=== PATIENT | female | born 1990 | race Caucasian/White ===

== ENCOUNTER 2018-12-19 16:54 | Emergency (ER) | payer BC ==
[2018-12-19] MEDS ORDERED: ONDANSETRON HCL INJ/PF 4 MG/2 ML SDV IV ONE (18:14)
[2018-12-19] MEDS ORDERED: KETOROLAC TROMETHAMINE INJ/PF 30 MG/1 ML SDV IV ONE (18:15)
[2018-12-19] MEDS ORDERED: NORMAL SALINE 1000 ML 1,000 ML IV ONE (18:15)
--- NOTE | 2018-12-19 18:16 | ER Document Report ---
ED Medical Screen (RME) - General Chief Complaint: Abdominal Pain Stated Complaint: ABDOMINAL PAIN Time Seen by Provider: 12/19/18 18:11 TRAVEL OUTSIDE OF THE [place] IN LAST 30 DAYS: No - HPI Notes: 12/19/18 18:15 Patient is a 28-year-old female no significant past medical history aside from having a previous kidney stone who presents complaining of right sided abdominal pain underneath her ribs that will occasionally radiate towards the front of her abdomen. Pain is been described as intermittent, but was constant initially a week ago when it started. Patient states that she did have some nausea and vomiting today. She is otherwise urinating normally and having normal bowel movement. She just ended her menstrual cycle. No other vaginal odor or discharge. Denies drug allergies. Patient was evaluated in urgent care and her urinalysis was unremarkable at that time. Denies ROBBINS, fever, neck pain, URI, CP, SOB, or rash. I have treated and performed a rapid initial assessment of this patient. A comprehensive ED assessment and evaluation of the patient, analysis of test results and completion of medical decision making process will be conducted by additional ED providers. PHYSICAL EXAMINATION: GENERAL: Well-appearing, well-nourished and in no acute distress. A&Ox4. Answers questions appropriately. LUNGS: Breath sounds clear to auscultation bilaterally and equal. No wheezes rales or rhonchi. HEART: Regular rate and rhythm without murmurs, rubs, gallops. ABDOMEN: Soft, nondistended abdomen. No guarding, no rebound. Normal bowel sounds present. No CVA tenderness bilaterally. grossly nontender (cannot elicit thorough abd exam w/o table, however). Extremities: No cyanosis, clubbing, or edema b/l. NEUROLOGICAL: Normal speech, normal gait. PSYCH: Normal mood, normal affect. - Related Data Allergies/Adverse Reactions: No Known Allergies Allergy (Verified 12/19/18 16:57) Past Medical History - Social History Chew tobacco use (# tins/day): No Frequency of alcohol use: None Drug Abuse: None Renal/ Medical History: Denies: Hx Peritoneal Dialysis Physical Exam - Vital signs Vitals: Temp Pulse Resp BP Pulse Ox 98.2 F 119 H 18 148/76 H 100 12/19/18 16:57 12/19/18 16:57 12/19/18 16:57 12/19/18 16:57 12/19/18 16:57 Course - Vital Signs Vital signs: Temp Pulse Resp BP Pulse Ox 98.2 F 119 H 18 148/76 H 100 12/19/18 16:57 12/19/18 16:57 12/19/18 16:57 12/19/18 16:57 12/19/18 16:57
[2018-12-19 18:56] LABS: ABSOLUTE EOSINOPHILS # (AUTO) 0.3 10^3/uL (0.0-0.6); ABSOLUTE LYMPHOCYTES (AUTO) 2.5 10^3/uL (0.5-4.7); ABSOLUTE MONOCYTES (AUTO) 0.9 10^3/uL (0.1-1.4); ABSOLUTE NEUT (AUTO) 8.8 10^3/uL (1.7-8.2); BASOPHILS % (AUTO) 0.2 % (0-2); EOSINOPHILS % (AUTO) 2.1 % (0-6); HEMATOCRIT 41.1 % (36.0-47.0); HEMOGLOBIN 13.8 g/dL (12.0-15.5); LYMPHOCYTES % (AUTO) 19.9 % (13-45); MEAN CORPUSCULAR HEMOGLOBIN 31.1 pg (27.0-33.4); MEAN CORPUSCULAR HGB CONC 33.5 g/dL (32.0-36.0); MEAN CORPUSCULAR VOLUME 93 fl (80-97); MONOCYTES % (AUTO) 7.1 % (3-13); PLATELET COUNT 308 10^3/uL (150-450); RED BLOOD COUNT 4.43 10^6/uL (3.72-5.28); SEGMENTED NEUTROPHILS % (AUTO) 70.7 % (42-78); TOTAL CELLS COUNTED % (AUTO) 100 %; WHITE BLOOD COUNT 12.4 10^3/uL (4.0-10.5)
[2018-12-19 19:09] LABS: APPEARANCE,URINE CLOUDY; BILIRUBIN,URINE NEGATIVE (NEGATIVE); COLOR,URINE AMBER; GLUCOSE, URINE NEGATIVE (NEGATIVE); KETONES,URINE NEGATIVE (NEGATIVE); LEUKOCYTE ESTERASE,URINE NEGATIVE (NEGATIVE); NITRITE,URINE NEGATIVE (NEGATIVE); PROTEIN,URINE NEGATIVE (NEGATIVE); URINE SPECIFIC GRAVITY 1.029; UROBILINOGEN,URINE NEGATIVE mg/dL (<2.0)
[2018-12-19 19:14] LABS: ALANINE AMINOTRANSFERASE 20 U/L (9-52); ALBUMIN 4.7 g/dL (3.5-5.0); ALKALINE PHOSPHATASE 82 U/L (38-126); ANION GAP 14 (5-19); ASPARTATE AMINO TRANSFERASE 17 U/L (14-36); BILIRUBIN,DIRECT 0.2 mg/dL (0.0-0.4); BILIRUBIN,TOTAL 0.3 mg/dL (0.2-1.3); BLOOD UREA NITROGEN 15 mg/dL (7-20); CARBON DIOXIDE 25 mmol/L (22-30); CHLORIDE 102 mmol/L (98-107); GLUCOSE 97 mg/dL (75-110); LIPASE 91.8 U/L (23-300); POTASSIUM 4.3 mmol/L (3.6-5.0); SODIUM 141.4 mmol/L (137-145); TOTAL PROTEIN 7.7 g/dL (6.3-8.2)
--- NOTE | 2018-12-19 20:29 | ER Document Report ---
ED GI/ - General Chief Complaint: Abdominal Pain Stated Complaint: ABDOMINAL PAIN Time Seen by Provider: 12/19/18 18:11 Mode of Arrival: Ambulatory Information source: Patient TRAVEL OUTSIDE OF THE [place] IN LAST 30 DAYS: No - HPI Patient complains to provider of: Abdominal pain, Flank pain Notes: 12/19/18 20:28 Patient here with complaints of right-sided abdominal/side pain for the last several days. She said nausea and vomited a few times intermittently but denies any vomiting now. No diarrhea. No dysuria or hematuria. No back till discharge. Pain is constant, nothing makes it better nothing makes it worse. She does have a history of kidney stones and this feels somewhat similar to that. No chest pain or shortness of breath. No fever. No rash. No injury. No numbness, tingling, weakness. No headache or blurred vision. No other specific complaints at this time. - Related Data Allergies/Adverse Reactions: No Known Allergies Allergy (Verified 12/19/18 20:05) Past Medical History - Social History Smoking Status: Unknown if Ever Smoked Chew tobacco use (# tins/day): No Frequency of alcohol use: None Drug Abuse: None Family History: Reviewed & Not Pertinent Patient has suicidal ideation: No Patient has homicidal ideation: No Renal/ Medical History: Denies: Hx Peritoneal Dialysis Review of Systems - Review of Systems -: Yes All other systems reviewed and negative Physical Exam - Vital signs Vitals: Temp Pulse Resp BP Pulse Ox 98.2 F 119 H 18 148/76 H 100 12/19/18 16:57 12/19/18 16:57 12/19/18 16:57 12/19/18 16:57 12/19/18 16:57 - Notes Notes: GENERAL: alert, cooperative, nontoxic, no distress. HEAD: normocephalic, atraumatic EYES: conjunctiva pink without discharge, no external redness or swelling. EARS: no external swelling, no external redness NOSE: atraumatic, no external swelling MOUTH/THROAT: mucous membranes moist and pink, posterior pharynx without erythema, swelling, exudate. No trismus or drooling. NECK: soft, supple, full range of motion, no meningismus. CHEST: no distress, lungs clear and equal throughout. No wheezing, rales, rhonchi. CARDIAC: regular rate and rhythm, no murmur, normal capillary refill, normal pulses. No peripheral edema noted. ABDOMEN: Soft, tenderness to palpation to the right mid abdomen and right lateral abdomen. No obvious mass, obese abdomen. BACK: full range of motion, no CVA tenderness. EXTREMITIES: full range of motion of all extremities. No redness, no swelling. NEURO: alert and oriented x 3, no focal deficits, full range of motion of all extremities. PYSCH: appropriate mood, affect. Patient is cooperative. SKIN: pink, warm, dry, no rash. Course - Re-evaluation Re-evalutation: 12/19/18 21:42 Patient is nontoxic-appearing with stable vitals. Patient here with complaints of right-sided abdominal pain. She has had some nausea with it as well. She is some tenderness to the right mid abdomen. Lab works unremarkable with a normal white count. LFTs, lipase are normal. Kidney functions normal. Urinalysis shows no signs of infection. Urine is negative. CT abdomen pelvis is negative for acute findings. Patient is feeling better at this time. Cannot exactly explain the patient's source of pain. She has no pelvic pain. She has no pelvic symptoms. This point believe the patient can be discharged home with prescription for some Naprosyn and Zofran with instructions to follow-up with her primary care doctor in the next 2 days if not better. She was instructed to return the emergency department if her pain got worse, high fever, persistent vomiting, or if she had any further concerns. The patient's emergency department workup and current diagnosis were explained to the patient and or family. Follow-up instructions were provided. Medications if prescribed were discussed. Instructions for when to return to the emergency department including specific worrisome symptoms were discussed with the patient and/or family. - Vital Signs Vital signs: Temp Pulse Resp BP Pulse Ox 98.2 F 119 H 18 148/76 H 100 12/19/18 16:57 12/19/18 16:57 12/19/18 16:57 12/19/18 16:57 12/19/18 16:57 - Laboratory Result Diagrams: 12/19/18 18:47 12/19/18 18:47 Laboratory results interpreted by me: 12/19/18 12/19/18 18:47 18:47 WBC 12.4 H Absolute Neutrophils 8.8 H Urine Ascorbic Acid 40 H - Diagnostic Test Radiology reviewed: Image reviewed, Reports reviewed - CT abdomen pelvis negative. Discharge - Discharge Clinical Impression: Abdominal pain Qualifiers: Abdominal location: unspecified location Qualified Code(s): R10.9 - Unspecified abdominal pain Condition: Stable Disposition: HOME, SELF-CARE Instructions: Abdominal Pain ([facility]) Additional Instructions: Take medication as prescribed. Drink plenty fluids. Follow-up with your doctor if not better in the next 2 days, sooner if worsening pain, fever, persistent vomiting, or for any further concerns. Prescriptions: Naproxen [Naprosyn] 500 mg PO BID #20 tablet Ondansetron HCl [Zofran 4 mg Tablet] 1 tab PO Q6H PRN #10 tablet PRN Reason: Forms: Elevated Blood Pressure, Smoking Cessation Education Referrals: [facility] [Provider Group] - Follow up as needed
--- NOTE | 2018-12-19 21:12 | RADIOLOGY REPORT (SQ) ---
EXAM DESCRIPTION: CT ABDOMEN PELVIS WITHOUT IV CONTRAST COMPLETED DATE/TME: 12/19/2018 20:27 CLINICAL HISTORY: 28 years, Female, RIGHT FLANK PAIN COMPARISON: None. TECHNIQUE: Axial images of the abdomen and pelvis were performed without the use of intravenous contrast, with sagittal and coronal reformatted images. Images stored on PACS. All CT scanners at this facility use dose modulation, iterative reconstruction, and/or weight based dosing when appropriate to reduce radiation dose to as low as reasonably achievable (ALARA). [facility]: Dose Right [facility]: CareDose [facility]: Dose Right [facility]: Teradose 4D [facility]: MedWhat LIMITATIONS: None. FINDINGS: No hydronephrosis or urinary stone. There are calcified phleboliths in the pelvis. The appendix appears normal. No evidence of bowel obstruction. There is no significant radiographic abnormality of the liver, spleen, pancreas or adrenal glands. No mass or adenopathy. No free air or free fluid. IMPRESSION: No acute finding. TECHNICAL DOCUMENTATION: Quality ID # [id number]: Final reports with documentation of one or more dose reduction techniques (e.g., Automated exposure control, adjustment of the mA and/or kV according to patient size, use of iterative reconstruction technique) copyright 2010 [employer]- All Rights Reserved
[2018-12-19 22:27] VITALS: BP 122/73
== END 2018-12-19 22:26 | disposition home or self-care (01) ==
LOC: ER 16:54
DX: R10.9 Unspecified abdominal pain (principal); R11.2 Nausea with vomiting, unspecified; Z87.442 Personal history of urinary calculi
CPT/HCPCS: 99284; 96361; 96374; 96375; 36415; 83690; 85025; 81025; 80053; 81001; 74176; J1885; J2405; J7030

== ENCOUNTER 2019-05-29 16:35 | Emergency (ER) | payer BC ==
[2019-05-29] MEDS ORDERED: ASPIRIN 81 MG TABLET, CHEWABLE PO ONE (16:46)
--- NOTE | 2019-05-29 16:50 | ER Document Report ---
ED Medical Screen (RME) - General Chief Complaint: Chest Pain Stated Complaint: CHEST DISCOMFORT Time Seen by Provider: 05/29/19 16:46 Mode of Arrival: Ambulatory Information source: Patient Notes: 29-year-old female presents to ED for complaint of chest discomfort number 1 PM today while she was at work. She states she also had shakiness and dizziness. She is alert oriented respirations regular and on unlabored speaking in full sentences walks with even steady gait. She states she does not smoke drinks socially does not use any drugs. She is a manager production. She states her control pills were ending so she should be starting her period soon. She denies any cardiac history or any blood pressure or cholesterol. I have greeted and performed a rapid initial assessment of this patient. A comprehensive ED assessment and evaluation of the patient, analysis of test results and completion of medical decision making process will be conducted by an additional ED providers. TRAVEL OUTSIDE OF THE [place] IN LAST 30 DAYS: No - Related Data Allergies/Adverse Reactions: No Known Allergies Allergy (Verified 05/29/19 16:46) Past Medical History - Social History Chew tobacco use (# tins/day): No Frequency of alcohol use: Social Drug Abuse: None Renal/ Medical History: Denies: Hx Peritoneal Dialysis Physical Exam - Vital signs Vitals: Temp Pulse Resp BP Pulse Ox 97.2 F 104 H 16 135/73 H 100 05/29/19 16:45 05/29/19 16:45 05/29/19 16:45 05/29/19 16:45 05/29/19 16:45 Course - Vital Signs Vital signs: Temp Pulse Resp BP Pulse Ox 97.2 F 104 H 16 135/73 H 100 05/29/19 16:45 05/29/19 16:45 05/29/19 16:45 05/29/19 16:45 05/29/19 16:45
[2019-05-29] MEDS ORDERED: CALCIUM GLUCONATE 1000 MG/10 ML INJ IV ONE (17:21)
--- NOTE | 2019-05-29 17:25 | RADIOLOGY REPORT (SQ) ---
EXAM DESCRIPTION: CHEST 2 VIEWS COMPLETED DATE/TIME: 05/29/2019 5:06 pm REASON FOR STUDY: chest discomfort COMPARISON: None. EXAM PARAMETERS: NUMBER OF VIEWS: two views TECHNIQUE: Digital Frontal and Lateral radiographic views of the chest acquired. RADIATION DOSE: NA LIMITATIONS: none FINDINGS: LUNGS AND PLEURA: No opacities, masses or pneumothorax. No pleural effusion. MEDIASTINUM AND HILAR STRUCTURES: No masses or contour abnormalities. HEART AND VASCULAR STRUCTURES: Heart normal size. No evidence for failure. BONES: No acute findings. HARDWARE: None in the chest. OTHER: No other significant finding. IMPRESSION: NO ACUTE RADIOGRAPHIC FINDING IN THE CHEST. TECHNICAL DOCUMENTATION: JOB ID: [id number] [employer]- All Rights Reserved Reading location - IP/workstation name: [email or web address]
[2019-05-29 17:35] LABS: ABSOLUTE EOSINOPHILS # (AUTO) 0.2 10^3/uL (0.0-0.6); ABSOLUTE LYMPHOCYTES (AUTO) 2.8 10^3/uL (0.5-4.7); ABSOLUTE MONOCYTES (AUTO) 0.7 10^3/uL (0.1-1.4); ABSOLUTE NEUT (AUTO) 7.1 10^3/uL (1.7-8.2); BASOPHILS % (AUTO) 0.1 % (0-2); EOSINOPHILS % (AUTO) 1.8 % (0-6); HEMATOCRIT 38.9 % (36.0-47.0); HEMOGLOBIN 13.4 g/dL (12.0-15.5); LYMPHOCYTES % (AUTO) 25.5 % (13-45); MEAN CORPUSCULAR HEMOGLOBIN 31.9 pg (27.0-33.4); MEAN CORPUSCULAR HGB CONC 34.5 g/dL (32.0-36.0); MEAN CORPUSCULAR VOLUME 92 fl (80-97); MONOCYTES % (AUTO) 6.6 % (3-13); PLATELET COUNT 301 10^3/uL (150-450); RED BLOOD COUNT 4.22 10^6/uL (3.72-5.28); RED CELL DISTRIBUTION WIDTH 12.5 % (11.5-14.0); TOTAL CELLS COUNTED % (AUTO) 100 %; WHITE BLOOD COUNT 10.8 10^3/uL (4.0-10.5)
[2019-05-29] MEDS ORDERED: NORMAL SALINE 1000 ML 1,000 ML IV ONE (17:35)
--- NOTE | 2019-05-29 17:38 | ER Document Report ---
ED Cardiac - General Chief Complaint: Chest Pain Stated Complaint: CHEST DISCOMFORT Time Seen by Provider: 05/29/19 16:46 Primary Care Provider: MAYELA HOLDER MD [Primary Care Provider] - Follow up as needed Mode of Arrival: Ambulatory Notes: HPI: Patient is a 29-year-old female that presents today stating around 5 weeks of some intermittent left-sided nonradiating chest pain. She also says a mild frontal headache without blurry vision, weakness or numbness. She denies cough, shortness of breath, calf pain or leg swelling. No recent trips or travel. Patient does not believe she is . Patient does state that she did drink an energy drink today. Patient states she has a history of some intermittent headaches with a recent MRI and a neurology evaluation. She states this is the same location as her normal headaches. Headache is currently 1 out of 10. It came on slowly. No neck pain or stiffness. ROS: See HPI All other review of systems reviewed and otherwise negative Reviewed vital signs and nursing note as charted by RN. PHYSICAL EXAM: CONSTITUTIONAL: Alert and oriented and responds appropriately to questions. Well-appearing; well-nourished HEAD: Normocephalic; atraumatic EYES: PERRL; full extraocular range of motion; no nystagmus ENT: Normal nose; no rhinorrhea; moist mucous membranes; pharynx without lesions noted NECK: Supple without meningismus; non-tender; no cervical lymphadenopathy, no masses CARD: Tachycardic and regular; no murmurs; symmetric distal pulses RESP: Normal chest excursion without splinting or tachypnea; breath sounds clear and equal bilaterally; no wheezes, no rhonchi, no rales ABD/GI: Normal bowel sounds; non-distended; soft, non-tender; no palpable organomegaly or masses BACK: The back appears normal and is non-tender to palpation EXT: Normal ROM in all joints; non-tender to palpation; no edema SKIN: No acute lesions noted NEURO: CN 2-12 intact; 5/5 bilateral upper and lower extremity strength with sensation intact to light touch PSYCH: The patient's mood and manner are appropriate. Grooming and personal hygiene are appropriate. TRAVEL OUTSIDE OF THE [place] IN LAST 30 DAYS: No - Related Data Allergies/Adverse Reactions: No Known Allergies Allergy (Verified 05/29/19 16:46) Past Medical History - General Information source: Patient - Social History Smoking Status: Never Smoker Chew tobacco use (# tins/day): No Frequency of alcohol use: Social Drug Abuse: None Family History: Reviewed & Not Pertinent Patient has suicidal ideation: No Patient has homicidal ideation: No Renal/ Medical History: Denies: Hx Peritoneal Dialysis Physical Exam - Vital signs Vitals: Temp Pulse Resp BP Pulse Ox 97.2 F 104 H 16 135/73 H 100 05/29/19 16:45 05/29/19 16:45 05/29/19 16:45 05/29/19 16:45 05/29/19 16:45 Course - Re-evaluation Re-evalutation: Given the history and physical examination, with a heart rate of 110, with no family history of early cardiac disease, non-smoker, denying any drug abuse, with a history and physical acts recorded, I do have a low pretest probability for ACS or dissection. I do believe the pretest probability for pulmonary embolism is low but the patient's heart rate is 107. Patient did drink an energy drink today. I will order a d-dimer. I have provided fluids and aspirin. Regarding the patient's headache, with a history of headaches, with a recent MRI, slow onset, frontal in location, no blurry vision, weakness or numbness, I do believe acute angle-closure glaucoma, acute bacterial meningitis, and subarachnoid hemorrhage to be extremely unlikely. 05/29/19 17:37 EKG shows heart of 110, sinus tachycardia, normal axis, no ST elevation or depression, inverted T waves in lead III 05/29/19 18:06 Labs and d-dimer as recorded. Heart rate is currently 96. 05/29/19 18:07 X-ray of the chest is unremarkable. 05/29/19 19:10 Labs and imaging as recorded. Normal d-dimer and TSH. No change in exam. Heart rate is currently 97. Patient has been instructed to avoid any caffeinated products or energy drinks with strict return precautions. Patient still denies any neck pain and the headache has improved. She is currently headache free. Still no weakness or numbness. - Vital Signs Vital signs: Temp Pulse Resp BP Pulse Ox 97.2 F 104 H 18 115/60 100 05/29/19 16:45 05/29/19 16:45 05/29/19 18:00 05/29/19 18:01 05/29/19 18:01 - Laboratory Result Diagrams: 05/29/19 17:18 05/29/19 17:18 Laboratory results interpreted by me: 05/29/19 17:18 WBC 10.8 H Discharge - Discharge Clinical Impression: Atypical chest pain, Tachycardia Condition: Good Disposition: HOME, SELF-CARE Additional Instructions: Come back immediately with any worsening pain, change in location or quality of pain, fevers or shortness of breath, leg swelling, weakness or numbness, or any other acute problems. Please make sure that you follow-up with the primary doctor as discussed. Referrals: MAYELA HOLDER MD [Primary Care Provider] - Follow up as needed
[2019-05-29 17:42] LABS: INTERNATIONAL RATION (INR) 1.05; PROTHROMBIN TIME 13.7 SEC (11.4-15.4)
[2019-05-29 17:43] LABS: PARTIAL THROMBOPLASTIN TIME 26.9 SEC (23.5-35.8)
[2019-05-29 17:57] LABS: ALBUMIN 4.6 g/dL (3.5-5.0); ALKALINE PHOSPHATASE 82 U/L (38-126); ANION GAP 10 (5-19); ASPARTATE AMINO TRANSFERASE 24 U/L (14-36); BILIRUBIN,DIRECT 0.1 mg/dL (0.0-0.4); BILIRUBIN,TOTAL 0.5 mg/dL (0.2-1.3); BLOOD UREA NITROGEN 15 mg/dL (7-20); CALCIUM 9.6 mg/dL (8.4-10.2); CARBON DIOXIDE 27 mmol/L (22-30); CHLORIDE 102 mmol/L (98-107); CREATINE KINASE 110 U/L (30-135); GLUCOSE 92 mg/dL (75-110); POTASSIUM 3.8 mmol/L (3.6-5.0); TOTAL PROTEIN 7.7 g/dL (6.3-8.2)
[2019-05-29 18:09] LABS: CREATINE KINASE MB 1.26 ng/mL (<4.55); NT PRO BNP 59 pg/mL (<125)
[2019-05-29 18:10] LABS: TROPONIN I < 0.012 ng/mL
[2019-05-29 19:28] VITALS: BP 119/66
--- NOTE | 2019-05-29 21:38 | EKG REPORT ---
SEVERITY:- OTHERWISE NORMAL ECG - SINUS TACHYCARDIA : Confirmed by: Eduardo Banerjee MD 29-May-2019 21:37:15
== END 2019-05-29 19:35 | disposition home or self-care (01) ==
LOC: ER 16:35
DX: R07.89 Other chest pain (principal); R00.0 Tachycardia, unspecified; R51 Headache
CPT/HCPCS: 93005; 36415; 82553; 82550; 83735; 84443; 84703; 85025; 85610; 85730; 80053; 84484; 85379; 83880; 71046; 93010; J7030; 96360; 99285

== ENCOUNTER 2020-02-23 11:23 | Outpatient (CLI) | payer BC ==
[2020-02-23 12:37] LABS: APPEARANCE,URINE CLEAR; BILIRUBIN,URINE NEGATIVE (NEGATIVE); COLOR,URINE COLORLESS; GLUCOSE, URINE NEGATIVE (NEGATIVE); KETONES,URINE NEGATIVE (NEGATIVE); LEUKOCYTE ESTERASE,URINE NEGATIVE (NEGATIVE); NITRITE,URINE NEGATIVE (NEGATIVE); PROTEIN,URINE NEGATIVE (NEGATIVE); URINE SPECIFIC GRAVITY 1.002; UROBILINOGEN,URINE NEGATIVE mg/dL (<2.0)
[2020-02-23 12:56] LABS: URINE AMPHETAMINES SCREEN NEGATIVE; URINE BARBITURATES SCREEN NEGATIVE; URINE BENZODIAZEPINES SCREEN NEGATIVE; URINE COCAINE SCREEN NEGATIVE; URINE MARIJUANA (THC) SCREEN NEGATIVE; URINE METHADONE SCREEN NEGATIVE; URINE PHENCYCLIDINE SCREEN NEGATIVE
== END 2020-02-23 12:18 | disposition home or self-care (01) ==
LOC: LC 11:23
PROVIDERS: ATTEND Student in an Organized Health Care Education/Training Program
DX: O36.8130 Decreased fetal movements, third trimester, not applicable or unspecified (principal); Z3A.31 31 weeks gestation of pregnancy
CPT/HCPCS: 80307; 81001

== ENCOUNTER 2020-04-25 07:15 | Inpatient (IN) | payer BC ==
[2020-04-25 08:25] LABS: APPEARANCE,URINE CLOUDY; BILIRUBIN,URINE NEGATIVE (NEGATIVE); COLOR,URINE YELLOW; GLUCOSE, URINE NEGATIVE (NEGATIVE); KETONES,URINE NEGATIVE (NEGATIVE); LEUKOCYTE ESTERASE,URINE NEGATIVE (NEGATIVE); NITRITE,URINE NEGATIVE (NEGATIVE); PROTEIN,URINE 100 mg/dL (NEGATIVE); URINE SPECIFIC GRAVITY 1.023; UROBILINOGEN,URINE NEGATIVE mg/dL (<2.0)
[2020-04-25 08:42] LABS: URINE AMPHETAMINES SCREEN NEGATIVE; URINE BARBITURATES SCREEN NEGATIVE; URINE BENZODIAZEPINES SCREEN NEGATIVE; URINE COCAINE SCREEN NEGATIVE; URINE MARIJUANA (THC) SCREEN NEGATIVE; URINE METHADONE SCREEN NEGATIVE; URINE PHENCYCLIDINE SCREEN NEGATIVE
[2020-04-25] MEDS ORDERED: RINGERS SOLUTION,LACTATED 1,000 ML IV ONE ×2 (08:45→09:45)
[2020-04-25 09:10] LABS: ABSOLUTE EOSINOPHILS # (AUTO) 0.1 10^3/uL (0.0-0.6); ABSOLUTE LYMPHOCYTES (AUTO) 1.4 10^3/uL (0.5-4.7); ABSOLUTE MONOCYTES (AUTO) 0.9 10^3/uL (0.1-1.4); ABSOLUTE NEUT (AUTO) 8.1 10^3/uL (1.7-8.2); BASOPHILS % (AUTO) 0.2 % (0-2); EOSINOPHILS % (AUTO) 0.9 % (0-6); HEMATOCRIT 32.4 % (36.0-47.0); HEMOGLOBIN 11.1 g/dL (12.0-15.5); MEAN CORPUSCULAR HEMOGLOBIN 31.6 pg (27.0-33.4); MEAN CORPUSCULAR HGB CONC 34.3 g/dL (32.0-36.0); MEAN CORPUSCULAR VOLUME 92 fl (80-97); MONOCYTES % (AUTO) 8.2 % (3-13); PLATELET COUNT 177 10^3/uL (150-450); RED BLOOD COUNT 3.52 10^6/uL (3.72-5.28); RED CELL DISTRIBUTION WIDTH 14.7 % (11.5-14.0); SEGMENTED NEUTROPHILS % (AUTO) 77.7 % (42-78); TOTAL CELLS COUNTED % (AUTO) 100 %; WHITE BLOOD COUNT 10.4 10^3/uL (4.0-10.5)
[2020-04-25] MEDS ORDERED: CEFAZOLIN 1 GM/D5W RTU 1 GM/50 ML RTUPB IV PRN (09:31)
[2020-04-25] MEDS ORDERED: OXYTOCIN 10 UNIT/ML VIAL ONE (09:43)
[2020-04-25] MEDS ORDERED: KETOROLAC TROMETHAMINE INJ/PF 30 MG/1 ML SDV ONE (09:43)
[2020-04-25] MEDS ORDERED: FENTANYL CITRATE INJ/PF 100 MCG/2 ML AMPUL ONE ×2 (09:43→12:42)
[2020-04-25] MEDS ORDERED: MIDAZOLAM 2 MG/2 ML INJ ONE (09:43)
[2020-04-25] MEDS ORDERED: ACETAMINOPHEN 1,000 MG/100 ML RTUPB IV ONE (09:44)
[2020-04-25] MEDS ORDERED: ONDANSETRON HCL INJ/PF 4 MG/2 ML SDV ONE (09:44)
[2020-04-25] MEDS ORDERED: MORPHINE SULFATE 10 MG/ML INJ IV PRN (11:24)
[2020-04-25] MEDS ORDERED: MEPERIDINE HCL/PF INJ 25 MG/1 ML DISP.SYRIN IV PRN (11:24)
[2020-04-25] MEDS ORDERED: FENTANYL CITRATE INJ/PF 100 MCG/2 ML AMPUL IV PRN ×3 (11:24)
[2020-04-25] MEDS ORDERED: ONDANSETRON HCL INJ/PF 4 MG/2 ML SDV IV PRN (11:24)
[2020-04-25] MEDS ORDERED: PROMETHAZINE HCL INJ 25 MG/1 ML VIAL IV PRN ×3 (11:24→12:04)
[2020-04-25] MEDS ORDERED: DIPHENHYDRAMINE HCL 50 MG/ML VIAL IV PRN (11:24)
[2020-04-25] MEDS ORDERED: OXYCODONE-ACETAMINOPHEN 5-325 MG TABLET PO PRN ×3 (11:24→12:04)
[2020-04-25] MEDS ORDERED: MEASLES,MUMPS&RUBELLA VACC/PF 0.5 ML VIAL SUBCUT PRN (12:04)
[2020-04-25] MEDS ORDERED: SIMETHICONE 80 MG TAB.CHEW PO PRN (12:04)
[2020-04-25] MEDS ORDERED: DIPH/PERTUSS(ACELL)/TETANUS VAC/PF 0.5 ML SYR (>=10YO) IM PRN (12:04)
[2020-04-25] MEDS ORDERED: OXYTOCIN/0.9 % SODIUM CHLORIDE 30 UNIT/500 ML RTUINJ IV PRN (12:04)
[2020-04-25] MEDS ORDERED: HYDROMORPHONE HCL INJ/PF 2 MG/ML AMPULE IV PRN (12:04)
[2020-04-25] MEDS ORDERED: RINGERS SOLUTION,LACTATED 1,000 ML IV PRN (12:04)
[2020-04-25] MEDS ORDERED: ACETAMINOPHEN 325 MG TABLET PO PRN (12:04)
--- NOTE | 2020-04-25 12:16 | Operative Report ---
Operative Report DATE OF SURGERY: 04/25/20 PREOPERATIVE DIAGNOSIS: Intrauterine at 39.4 wks EGA. Large for gest ational age POSTOPERATIVE DIAGNOSIS: Same as above OPERATION: Primary section SURGEON: CHIQUI ESCOBAR ANESTHESIA: Spinal TISSUE REMOVED OR ALTERED: Placenta COMPLICATIONS: None ESTIMATED BLOOD LOSS: 750 INTRAOPERATIVE FINDINGS: Normal appearing uterus, bilateral fallopian tubes and ovaries. Clear amniotic fluid. Viable male with Apgars of 9/9 and 1/5 minutes respectfully. Crying prior to hand off to nursery RN. PROCEDURE: IV fluids: per anesthesia record Urinary output: 150 cc clear yellow urine Findings: Normal-appearing uterus bilateral fallopian tubes and ovaries. Placenta grossly normal. Viable male infant with Apgars of 9 and 9, at 1 and 5 minutes respectively. Position: To recovery room in stable condition Description of procedure: The patient was taken to the operating room and spinal anesthesia was administered and found to be adequate. She was then placed on the OR table in the supine position with a slight leftward tilt. Patient was prepped and draped in usual sterile fashion. Ancef 2 gms was given IV prior to the procedure for infection prophylaxis. Timeout was taken. A Pfannenstiel skin incision was then made approximately 3 cm above the pubic symphysis and carried down to level the rectus fascia. The rectus fascia was then nicked in the midline with a scalpel and the fascial incision was extended laterally with use of curved Trivedi scissors. The rectus fascia was then grasped with 2 Kocker clamps elevated and the underlying rectus muscle was dissected off both bluntly and sharply. Any bleeding controlled with cautery. The rectus muscles were then split in the midline and the peritoneum was entered. The peritoneal incision was then extended by manually stretching the peritoneum. The bladder blade was po sitioned. The bladder was noted to be out of harm's way. A scalpel was then used in the lower uterine for the hysterotomy, slowly until amniotomy was obtained a large amount of fluid was noted. The uterine incision was then manually stretched. The was noted to be in vertex postion -deep in the pelvis. Using a hand deep in pelvis, the head was elevated and brought to the hysterotomy incision. The head then delivered with assistance of a Kiwi vacuum. No pop offs. Gentle traction used to guide the head to hysterotomy incison. The shoulders and the rest of the body followed immediately. The cord was cut clamped and the infant was handed off to the nurse awaiting. Infant was crying prior to hand off. The placenta was manually delivered. Using a lap gauze the uterus was cleared of all clots and debris. An félix retractor was placed to facilitate closure of uterus. The uterine incision was then closed with 0 Chromic suture in a running locked fashion. A second layer of the same suture was used in a running locked imbricated fashion. The uterine incision was inspected and noted to be hemostatic. Retractor was removed. The posterior aspect of the uterus was then inspected and anatomy was seen as above. The uterus was returned to its normal anatomic position within the abdominal cavity. Warm saline irrigation was used to clear all clots and debris from the abdomen. The uterine incision was inspected once more and noted to remain hemostatic. The bladder blade was removed and the peritoneum was closed with 2-0 chromic in a running fashion. The rectus muscles were then reapproximated and the rectus fascia was closed with a #0 looped PDS in a running fashion. The subcutaneous tissue was then inspected and any bleeding was controlled with Bovie electrocautery. The subcutaneous tissue was then closed with 2-0 Plain Gut suture in a running fashion. The skin was then closed with 4-0 Monocryl in a running subcuticular fashion. The skin incision was then clean dried and Dermabond was applied over the skin incision. All instrument sponge and needle counts were correct x3 for the procedure the patient tolerated the procedure well. She will proceed to recovery room in s table condition
--- NOTE | 2020-04-25 12:20 | PDOC DELIVERY SUMMARY ---
Delivery Summary - Maternal Hx : II Hx Para: I Hx # Term Pregnancies: 1 Hx # Pregnancies: 0 Hx Total # of Abortions (Sponateous & Elective): 0 Number of Living Children: 1 ARON: 05/01/20 Gestational Age: 39 weeks Risk Factors/Complications Other:: Large for gestational age fetus: maternal desire for PCS - Delivery Uterine Contraction Monitoring: External Pattern Other: Cat 1 NST prior to OR Support Person Present: Yes Location: OR : Scheduled Placenta: Within Normal Limits Placenta Description: grossly normal Number of Vessels (Cord): 3 Nuchal Cord: No Estimated Blood Loss: 750 - Medications Type of Anesthesia:: Spinal - Delivery Personnel MD: CHIQUI ESCOBAR
--- NOTE | 2020-04-25 13:07 | Birth Certificate Data ---
Cert Data Datetime Report Generated by CPN: 04/25/2020 13:06 CERTIFICATE DATA 48b. Now Livin (02/23/2020 11:45:Nickie Kt, RN) RISK FACTORS IN THIS 49c. Previous Births: 0 (02/23/2020 11:45:Nickie Kt, RN) Mother's Height 50b. Height Inches: 61 (04/25/2020 08:49:QS system process) Mother's Weight 51b. Weight at Delivery (lbs): 255 (04/25/2020 08:49:QS system process) Onset of Labor 56a. PROM >12 Hrs: 0.03 (02/23/2020 11:45:QS system process) 57a. Induction of Labor: N/A (02/23/2020 11:45:Bethany Marlow RN) 57c. Non-Vertex Presentation A: Vertex (02/23/2020 11:45:Bethany Marlow RN) 57d. Steroids - Lung Mat: None (02/23/2020 11:45:Bethany Marlow RN) 57d. Steroids - Lung Mat: Not Applicable (02/23/2020 11:45:Bethany Marlow RN) 57f. Mat Ch[place] or Temp >100.4: 96.5 (02/23/2020 11:45:Bethany Marlow RN) 57g. Moderate/Heavy Meconium: Clear (02/23/2020 11:45:Bethany Marlow RN) 57h. Intolerance of Labor: Other (02/23/2020 11:45:Elena Mena MD) : Large for gestational age: maternal request for CS (02/23/2020 11:45:Elena Mena MD) Method of Delivery 58a. Forceps - Unsuccessful A: N/A (02/23/2020 11:45:Bethany Marlow RN) 58b. Vacuum - Unsuccessful A: Successful (02/23/2020 11:45:Bethany Marlow RN) 58c. Presentation at 58c. Presentation at - A : Vertex (02/23/2020 11:45:Bethany Sales, RN) 58c. Presentation at - A : Cephalic (02/23/2020 11:45:Bethany Sales, RN) Final Route and Method of Del 58d. Baby A Route/Delivery: (02/23/2020 11:45:[facility], RN) 58e. Trial of Labor Attempted: No [facility] 58e. Trial of Labor Attempted A: N/A (02/23/2020 11:45:[facility], RN) 58e. Trial of Labor Attempted B: N/A (02/23/2020 11:45:[facility], RN) Birthweight Baby A: 4230 (02/23/2020 11:45:Bethany Sales, RN) 60a. Pounds : 9 (02/23/2020 11:45:QS system process) 60b. Ounces: 5 (02/23/2020 11:45:QS system process) 61. GA at Delivery Baby A: 39.1 (02/23/2020 11:45:Bethany Sales, RN) : Full Term- 39- 40.6 Weeks (02/23/2020 11:45:QS system process) 62a. 5 Minute Baby A: 9 (02/23/2020 11:45:QS system process)
--- NOTE | 2020-04-25 13:07 | Delivery Summary ---
Del Sum A-C Datetime Report Generated by CPN: 04/25/2020 13:06 DELIVERY PERSONNEL DELIVERY PERSONNEL: [id number] Delivery Doctor:: Elena Mena MD BASEBALL CLUB MANAGER:: Annia Teran CRNA Labor and Delivery Nurse:: Shelly Espinoza RN Sales Analyst:: Bethany Marlow RN Biological Photographer:: Dr. Sharmaine Lowe Nursery Nurse:: Franca Stoll RN Nursery Nurse:: Marcy Madera RN Oil Heater Installer/CARTON PACKAGING MACHINE OPERATOR: Irma Freeman CST Oil Heater Installer/CARTON PACKAGING MACHINE OPERATOR: Simona Pemberton CST MATERNAL INFORMATION Delivery Anesthesia: Spinal Medications After Delivery: Pitocin Drip 20 Units/1000ml NSS Meds After Delivery Comment: Pitocin 20u/1000NSS X2 Delivery QBL: 714 Maternal Complications: None (Annotations: Data stored by [facility] on behalf of user) Provider Comments: See operative report LABOR SUMMARY EDC: 05/01/2020 00:00 Attempted: No LABOR INFORMATION Reason for Induction: Not Applicable Oxytocin: N/A Group B Beta Strep: Negative Antibiotics # of Doses: NA Name of Antibiotic Given: NA Steroids Given: None Reason Steroids Not Administered: Not Applicable MEMBRANES Membranes Rupture Method: Artificial Rupture of Membranes: 04/25/2020 11:18 Length of Rupture (hr): 0.03 Amniotic Fluid Color: Clear Amniotic Fluid Amount: Copious Amniotic Fluid Odor: Normal STAGES OF LABOR Stage 3 hr: 0 Stage 3 min: 2 CSECTION DELIVERY Primary Indication: Other Other Primary Indication: Large for gestational age: maternal request for CS CSection Urgency: Scheduled CSection Incidence: Primary Labor: No Labor Elective: Elective CSection Incision: Lower Uterine Transverse BABY A INFORMATION Delivery Date/Time: 04/25/2020 11:20 Method of Delivery: Nurse Controlled Delivery: No Born in Route : No : N/A Forceps: N/A Vacuum Extraction: Successful Shoulder Dystocia : No PRESENTATION/POSITION BABY A Presentation: Cephalic Cephalic Presentation: Vertex PLACENTA INFORMATION BABY A Placenta Delivery Time : 04/25/2020 11:22 Placenta Method of Delivery: Manual Removal Placenta Status: Delivered SCORES BABY A Heart Rate 1 min: >100 bpm Resp Effort 1 min: Good Cry Reflex Irritability 1 min: Cough or Sneeze or Pulls Away Muscle Tone 1 min: Active Motion Color 1 min: Body [place], Extremities Blue Resuscitation Effort 1 min: Tactile Stimulation SCORE 1 MIN: 9 Heart Rate 5 min: >100 bpm Resp Effort 5 min: Good Cry Reflex Irritability 5 min: Cough or Sneeze or Pulls Away Muscle Tone 5 min: Active Motion Color 5 min: Body [place], Extremities Blue SCORE 5 MIN: 9 INFANT INFORMATION BABY A Gestational Age at Delivery: 39.1 Gestational Status: Full Term- 39- 40.6 Weeks Outcome : Liveborn Infant Condition : Stable Infant Sex: Male IDENTIFICATION BABY A Infant Verification Date/Time: 04/25/2020 11:20 ID Band Number: [id number] Mother's Name Verified: Yes Infant RN Verifying : Yolanda Espinoza RN Additional Verifying Personnel: Sidra Marlow RN WEIGHT/LENGTH BABY A Birthweight (gm): 4230 Infant Weight (lb): 9 Infant Weight (oz): 5 Length (in): 20.00 Length (cm): 50.80 CORD INFORMATION BABY A No. Cord Vessels: 3 Nuchal Cord : N/A Cord Blood Taken: Yes-For Storage (Mom's Blood type +) ASSESSMENT BABY A Skin to Skin: Yes Skin to Skin Time (min): 5 BABY B INFORMATION : N/A
[2020-04-25] MEDS ORDERED: MORPHINE SULFATE 10 MG/ML INJ ONE (13:20)
[2020-04-25] MEDS: DOCUSATE SODIUM 100 MG CAPSULE PO SCH (17:37)
[2020-04-25] MEDS: FERROUS SULFATE 325 MG TABLET PO SCH (17:38)
[2020-04-25] MEDS ORDERED: KETOROLAC TROMETHAMINE INJ/PF 30 MG/1 ML SDV IV SCH (18:00)
[2020-04-26] MEDS ORDERED: KETOROLAC TROMETHAMINE INJ/PF 30 MG/1 ML SDV IV SCH (02:00)
[2020-04-26] MEDS ORDERED: CEFAZOLIN 1 GM/D5W RTU 1 GM/50 ML RTUPB IV PRN (05:00)
[2020-04-26 07:44] LABS: HEMATOCRIT 30.8 % (36.0-47.0); HEMOGLOBIN 10.8 g/dL (12.0-15.5); MEAN CORPUSCULAR HEMOGLOBIN 32.5 pg (27.0-33.4); MEAN CORPUSCULAR HGB CONC 35.2 g/dL (32.0-36.0); MEAN CORPUSCULAR VOLUME 92 fl (80-97); PLATELET COUNT 178 10^3/uL (150-450); RED BLOOD COUNT 3.33 10^6/uL (3.72-5.28); RED CELL DISTRIBUTION WIDTH 14.9 % (11.5-14.0)
[2020-04-26] MEDS: OXYCODONE-ACETAMINOPHEN 5-325 MG TABLET PO PRN ×2 (07:53→20:07)
[2020-04-26] MEDS: IBUPROFEN 800 MG TABLET PO SCH ×2 (09:49→19:03)
[2020-04-26] MEDS: PRENATAL VITAMIN W DHA CAPSULE PO SCH (09:49)
[2020-04-26] MEDS: DOCUSATE SODIUM 100 MG CAPSULE PO SCH ×2 (09:49→19:02)
[2020-04-26] MEDS: FERROUS SULFATE 325 MG TABLET PO SCH ×2 (09:49→19:02)
--- NOTE | 2020-04-26 13:37 | PDOC PROGRESS REPORT ---
Subjective-OB Progress Note for:: 04/26/20 Subjective: reports bleeding slowing, pain controlled with current meds. denies needs Physical Exam (OB) Vital Signs: Temp Pulse Resp BP Pulse Ox 98.2 F 93 17 121/70 97 04/26/20 11:34 04/26/20 11:34 04/26/20 11:34 04/26/20 11:34 04/26/20 11:34 Intake & Output 04/25/20 04/26/20 04/27/20 06:59 06:59 06:59 Intake Total 2650 Output Total 200 Balance 2450 Weight 115.666 kg - Dressing Removed: No Incision: Well Approximated Closure Type: Surgical Glue - Maternal Morbidity 59. Maternal Morbidity (serious complications experinced by the mother associated with labor and delivery: None of the above - Abdomen Description: Tender, Soft, Round Hernia Present: No Fundal Description: Firm, Midline Fundal Height: u/u - u/2 - Abdominal Distension: No distension - Extremities Lower extremities: Cale's sign - neg Calf: Normal, Nontender Objective-Diagnostic Laboratory: 04/26/20 07:16 04/26/20 07:16 WBC 11.0 H RBC 3.33 L Hgb 10.8 L Hct 30.8 L MCV 92 MCH 32.5 MCHC 35.2 RDW 14.9 H Plt Count 178 Assessment and Plan(PN) - Time Spent with Patient Time with patient: Less than 15 minutes Medications reviewed and adjusted accordingly: Yes - Disposition Anticipated Discharge Disposition: Home, Self Care Anticipated Discharge Timeframe: within 24 hours
[2020-04-26] MEDS ORDERED: DIPH/PERTUSS(ACELL)/TETANUS VAC/PF 0.5 ML SYR (>=10YO) IM PRN (15:30)
[2020-04-26] MEDS ORDERED: MEASLES,MUMPS&RUBELLA VACC/PF 0.5 ML VIAL SUBCUT PRN (15:30)
[2020-04-26] MEDS ORDERED: PROMETHAZINE HCL INJ 25 MG/1 ML VIAL IV PRN (15:30)
[2020-04-27] MEDS: IBUPROFEN 800 MG TABLET PO SCH ×3 (01:38→17:17)
[2020-04-27] MEDS: DOCUSATE SODIUM 100 MG CAPSULE PO SCH ×2 (09:14→17:17)
[2020-04-27] MEDS: FERROUS SULFATE 325 MG TABLET PO SCH ×2 (09:14→17:17)
[2020-04-27] MEDS: PRENATAL VITAMIN W DHA CAPSULE PO SCH (09:14)
--- NOTE | 2020-04-27 10:50 | PDOC DISCHARGE SUMMARY ---
Impression - Admit/DC Date/PCP Admission Date/Primary Care Provider: 04/25/20 07:15 Discharge Date: 04/27/20 - POD #3, s/p Primary , pt doing well today, no complaints, AB+, rubella Non-immune, needs MMR booster - Discharge Diagnosis (1) S/P primary low transverse Is this a current diagnosis for this admission?: Yes (2) Normal course Is this a current diagnosis for this admission?: Yes - Additional Information Resuscitation Status: Full Code Discharge Diet: As Tolerated Discharge Activity: Activity As Tolerated, No Driving, No Lifting Over 10 Pounds, Pelvic Rest Prescriptions: Ibuprofen [Motrin 800 mg Tablet] 800 mg PO Q8A #60 tablet Oxycodone HCl/Acetaminophen [Percocet 5-325 mg Tablet] 1 tab PO Q4HP PRN #30 PRN Reason: Pain Scale Of 4 Home Medications: 95/Iron Fum/Folic/Dha [ + Dha Combo Pack] 1 tab PO DAILY 02/23/20 Ascorbic Acid [Vitamin C 500 mg Tablet] 500 mg PO DAILY 04/25/20 Ibuprofen [Motrin 800 mg Tablet] 800 mg PO Q8A #60 tablet 04/27/20 Oxycodone HCl/Acetaminophen [Percocet 5-325 mg Tablet] 1 tab PO Q4HP PRN #30 04/27/20 HPI Reason(s) for Admission: Induction of Labor, Ceasarean Section-Primary Procedures: Ultrasound Hospital Course Hospital Course: routine PP course 59. Maternal Morbidity (serious complications experinced by the mother associated with labor and delivery: None of the above Results Laboratory Results: WBC 11.0 10^3/uL (4.0-10.5) H 04/26/20 07:16 RBC 3.33 10^6/uL (3.72-5.28) L 04/26/20 07:16 Hgb 10.8 g/dL (12.0-15.5) L 04/26/20 07:16 Hct 30.8 % (36.0-47.0) L 04/26/20 07:16 MCV 92 fl (80-97) 04/26/20 07:16 MCH 32.5 pg (27.0-33.4) 04/26/20 07:16 MCHC 35.2 g/dL (32.0-36.0) 04/26/20 07:16 RDW 14.9 % (11.5-14.0) H 04/26/20 07:16 Plt Count 178 10^3/uL (150-450) 04/26/20 07:16 Lymph % (Auto) 13.0 % (13-45) 04/25/20 08:38 [place] % (Auto) 8.2 % (3-13) 04/25/20 08:38 Eos % (Auto) 0.9 % (0-6) 04/25/20 08:38 Baso % (Auto) 0.2 % (0-2) 04/25/20 08:38 Absolute Neuts (auto) 8.1 10^3/uL (1.7-8.2) 04/25/20 08:38 Absolute Lymphs (auto) 1.4 10^3/uL (0.5-4.7) 04/25/20 08:38 Absolute Monos (auto) 0.9 10^3/uL (0.1-1.4) 04/25/20 08:38 Absolute Eos (auto) 0.1 10^3/uL (0.0-0.6) 04/25/20 08:38 Absolute Basos (auto) 0.0 10^3/uL (0.0-0.2) 04/25/20 08:38 Seg Neutrophils % 77.7 % (42-78) 04/25/20 08:38 Urine Color YELLOW 04/25/20 07:46 Urine Appearance CLOUDY 04/25/20 07:46 Urine pH 6.0 (5.0-9.0) 04/25/20 07:46 Ur Specific [place] 1.023 04/25/20 07:46 Urine Protein 100 mg/dL (NEGATIVE) H 04/25/20 07:46 Urine Glucose (UA) NEGATIVE mg/dL (NEGATIVE) 04/25/20 07:46 Urine Ketones NEGATIVE mg/dL (NEGATIVE) 04/25/20 07:46 Urine Blood NEGATIVE (NEGATIVE) 04/25/20 07:46 Urine Nitrite NEGATIVE (NEGATIVE) 04/25/20 07:46 Urine Bilirubin NEGATIVE (NEGATIVE) 04/25/20 07:46 Urine Urobilinogen NEGATIVE mg/dL (<2.0) 04/25/20 07:46 Ur Leukocyte Esterase NEGATIVE (NEGATIVE) 04/25/20 07:46 Urine WBC (Auto) 7 /HPF 04/25/20 07:46 Urine RBC (Auto) 1 /HPF 04/25/20 07:46 Urine Bacteria (Auto) 2+ /HPF 04/25/20 07:46 Squamous Epi Cells Auto 11 /HPF 04/25/20 07:46 Urine Mucus (Auto) MOD /LPF 04/25/20 07:46 Urine Ascorbic Acid 20 (NEGATIVE) H 04/25/20 07:46 Urine Opiates Screen NEGATIVE 04/25/20 07:46 Urine Methadone Screen NEGATIVE 04/25/20 07:46 Ur Barbiturates Screen NEGATIVE 04/25/20 07:46 Ur Phencyclidine Scrn NEGATIVE 04/25/20 07:46 Ur Amphetamines Screen NEGATIVE 04/25/20 07:46 U Benzodiazepines Scrn NEGATIVE 04/25/20 07:46 Urine Cocaine Screen NEGATIVE 04/25/20 07:46 U Marijuana (THC) Screen NEGATIVE 04/25/20 07:46 COVID-19 Source See comment 04/20/20 15:24 COVID-19 (SOFIA) Not Detected (Not Detect) 04/20/20 15:24 Blood Type AB POSITIVE 04/25/20 08:38 Antibody Screen NEGATIVE 04/25/20 08:38 Plan Plan of Treatment: d/c home, f/up with [facility] in one week for incision check Time Spent: Less than 30 Minutes
[2020-04-27 11:16] VITALS: BP 119/74
== END 2020-04-27 17:50 | disposition home or self-care (01) | DRG 788 ==
LOC: LR 07:15 → 2S 07:20
PROVIDERS: ADMIT Obstetrics & Gynecology; ATTEND Obstetrics & Gynecology
PROC: 10D00Z1 Extraction of Products of Conception, Low, Open Approach (ICD-10-PCS; principal; 2020-04-25)
PROC: 3E0234Z Introduction of Serum, Toxoid and Vaccine into Muscle, Percutaneous Approach (ICD-10-PCS; 2020-04-27)
DX: O36.63X0 Maternal care for excessive fetal growth, third trimester, not applicable or unspecified (principal); Z3A.39 39 weeks gestation of pregnancy; Z20.828 Contact with and (suspected) exposure to other viral communicable diseases; Z23 Encounter for immunization; Z37.0 Single live birth
CPT/HCPCS: 1961; 36415; 80307; 81001; 85025; 85027; 86850; 86900; 86901; 87635; 90707; 94760; 94799; C9803; J0131; J1885; J2250; J2270; J2405; J2590; J3010; J3490; J7120